=== PATIENT | female | born 1995 | race Two or more races ===

== ENCOUNTER 2024-08-03 09:06 | Emergency (ER) | payer BC, OTHER ==
[~2024-08-03] VITALS: Ht 157.5 cm; Wt 61.7 kg
--- NOTE | 2024-08-03 10:44 | ED.PDOC ---
UN[employer] HPI Comments 29 year old female presents to the ED with chief complaint of vaginal bleeding. Patient reports that she has been experiencing some vaginal bleeding noticed when wiping with associated suprapubic cramping for the past 2 days. Patient relays that she is currently 7-8 weeks . Patient is . Patient denies any N/V, vaginal discharge, dysuria, fever, or chills. Chief Complaint: Vaginal Bleed Time Seen by MD: 10:41 Reviewed Notes: Nurses Notes, Medications, Allergies Allergies: Coded Allergies: Amoxicillin (Verified Allergy, Unknown, 08/03/24) Information Source: Patient Mode of Arrival: Ambulatory Timing: Days Prehospital treatment: None Severity: Moderate Vaginal Discharge: None Vaginal Lesions: None Bleeding Quality: Bright Red Vaginal Mass: None Onset Of Mass/Bleeding: Spontaneous Sexual Activity: Last Consensual [place]: Unknown Control: None History of: Current Blood Type: Unknown Associated Signs and Symptoms: Vaginal Bleeding, Abdominal Pain, Cramping Past Medical History PAST MEDICAL HISTORY: Denies Surgical History: Denies all surgeries SANDSTONE INSPECTOR REPAIRER History: No Pertinent SANDSTONE INSPECTOR REPAIRER History 1 Para 0 Family History Family History: Reviewed,noncontributory to illness Social History Smoker: Non-Smoker Alcohol: Denies ETOH Use Drugs: Denies Drug Use Lives In: Home Constitutional: denies: chills, diaphoresis, fatigue, fever, malaise, sweats, weakness, others EENTM: denies: blurred vision, double vision, ear bleeding, ear discharge, ear drainage, ear pain, ear ringing, eye pain, eye redness, hearing loss, mouth pain, mouth swelling, nasal discharge, nose bleeding, nose congestion, nose pain, photophobia, tearing, throat pain, throat swelling, voice changes, others Respiratory: denies: cough, hemoptysis, orthopnea, SOB at rest, shortness of breath, SOB with excertion, stridor, wheezing, others Cardiovascular: denies: chest pain, dizzy spells, diaphoresis, Dyspnea on exertion, edema, irregular heart beat, left arm pain, lightheadedness, palpitations, PND, syncope, others Gastrointestinal: reports: abdominal pain; denies: abdomen distended, blood streaked bowels, constipated, diarrhea, dysphagia, difficulty swallowing, hematemesis, melena, nausea, poor appetite, poor fluid intake, rectal bleeding, rectal pain, vomiting, others Genitourinary: reports: abnormal vagina bleeding, ; denies: burning, dyspareunia, dysuria, flank pain, frequency, hematuria, incontinence, pain, vagina discharge, urgency, others Neurological: denies: dizziness, fainting, headache, left sided numbness, left sided weakness, numbness, paresthesia, pre-existing deficit, right sided numbness, right sided weakness, seizure, speech problems, tingling, tremors, weakness, others Musculoskeletal: denies: back pain, gout, joint pain, joint swelling, muscle pain, muscle stiffness, neck pain, others Integumetry: denies: bruises, change in color, change in hair/nails, dryness, laceration, lesions, lumps, rash, wounds, others Allergic/Immunocompromised: denies: Difficulty Healing, Frequent Infections, H cherry, Itching, others Hematologic/Lymphatic: denies: anemia, blood clots, easy bleeding, easy bruising, swollen glands, others Endocrine: denies: excessive hunger, excessive sweating, excessive thirst, excessive urination, flushing, intolerance to cold, intolerance to heat, unexplained weight gain, unexplained weight loss, others Psychiatric: denies: anxiety, bipolar disorder, depression, hopeless, panic disorder, schizophrenia, sleepless, suicidal, others All Other Systems: Reviewed and Negative Physical Exam General Appearance: No Apparent Distress HEENT: Normal ENT Inspection, Pharynx Normal, TMs Normal Neck: Full Range of Motion, Non-Tender, Normal, Normal Inspection Respiratory: Chest Non-Tender, Lungs Clear, No Accessory Muscle Use, No Respiratory Distress, Normal Breath Sounds Cardiovascular: No Edema, No JVD, No Murmur, No Gallop, Normal Peripheral Pulses, Regular Rate/Rhythm Breast Exam: Deferred Gastrointestinal: No Organomegaly, Non Tender, No Pulsatile Mass, Normal Bowel Sounds, Soft, Other ( abdomen no tenderness) Genitalia: Deferred Pelvic: Deferred Rectal: Deferred Extremities: No calf tenderness, Normal capillary refill, Normal inspection, Normal range of motion, Non-tender, No pedal edema Neurologic: Alert, tube carrier II-XII nml as Tested, No Motor Deficits, Normal Affect, Normal Mood, No Sensory Deficits Cerebellar Function: Normal Reflexes: Normal Skin: Dry, Normal Color, Warm Peripheral Pulses: 1+ carotid (R), 1+ carotid (L) Lymphatic: No Adenopathy Was a procedure done? Was a procedure done?: No Differential Diagnosis (SANDSTONE INSPECTOR REPAIRER) Vaginal Bleeding: - Incomplete, Ectopic , UTI Mass / Lesion: N/A Vaginal Discharge: , UTI, Other (Vaginal bleeding) X-Ray, Labs, Meds, VS Vital Signs Date Time Temp Pulse Resp B/P (MAP) Pulse Ox O2 Delivery O2 Flow Rate FiO2 08/03/24 12:05 97.5 74 16 107/63 (78) 97 97.5 08/03/24 09:14 98.5 82 18 108/68 (81) 97 Lab Test 08/03/24 11:51 08/03/24 09:32 Range/Units White Blood Count 8.0 4.4-10.8 10^3/uL Red Blood Count 4.59 4.0-5.20 10^6/uL Hemoglobin 14.8 12.2-16.2 g/dL Hematocrit 42.6 36.0-46.0 % Mean Corpuscular Volume 92.8 80.0-100.0 fL Mean Corpuscular Hemoglobin 32.2 H 28.0-32.0 pg Mean Corpuscular Hemoglobin Concent 34.7 32.0-36.0 g/dL Red Cell Distribution Width 14.5 H 11.8-14.3 % Platelet Count 251 140-450 10^3/uL Mean Platelet Volume 8.5 6.9-10.8 fL Neutrophils (%) (Auto) 74.2 37.0-80.0 % Lymphocytes (%) (Auto) 19.6 10.0-50.0 % Monocytes (%) (Auto) 5.2 0.0-12.0 % Eosinophils (%) (Auto) 0.4 0.0-7.0 % Basophils (%) (Auto) 0.6 0.0-2.0 % Neutrophils # (Auto) 6.0 1.6-8.6 10 ^3/uL Lymphocytes # (Auto) 1.6 0.4-5.4 10 ^3/uL Monocytes # (Auto) 0.4 0-1.3 10 ^3/uL Eosinophils # (Auto) 0 0-0.8 10 ^3/uL Basophils # (Auto) 0.1 0-0.2 10 ^3/uL Nucleated Red Blood Cells 0.0 % Sodium Level 137 136-145 mmol/L Potassium Level 3.6 3.5-5.1 mmol/L Chloride Level 105 98-107 mmol/L Carbon Dioxide Level 24 20-31 mmol/L Anion Gap 8 5-15 Blood Urea Nitrogen 5 L 9-23 mg/dL Creatinine 0.57 0.550-1.02 mg/dL Glomerular Filtration Rate Calc 127 >90 mL/min BUN/Creatinine Ratio 8.8 L 10.0-20.0 Serum Glucose 88 74-106 mg/dL Calcium Level 9.9 8.7-10.4 mg/dL Beta HCG, Quantitative 731231.6 H 1.5-4.2 mIU/mL Urine Color Yellow Yellow Urine Clarity Turbid H Clear Urine pH 6.0 5.0-9.0 Urine Specific Dawson 1.022 1.001-1.035 Urine Protein Trace H Negative Urine Ketones Negative Negative Urine Blood 2+ H Negative /uL Urine Nitrite Negative Negative Urine Bilirubin Negative Negative Urine Urobilinogen Normal Negative mg/dL Urine Leukocyte Esterase Trace Negative /uL Urine RBC 4 0 - 4 /hpf Urine WBC 5 0 - 5 /hpf Urine Squamous Epithelial Cells Few <5 /hpf Urine Bacteria Mod H None Seen /hpf Urine Mucus Few None Seen Urine Glucose Normal Normal mg/dL OB US: FINDINGS: The uterus measures 10 x 6 x 6 cm. The cervix was not seen Right ovary measures 2 x 1 x 2 cm with normal Doppler color flow Left ovary measures 3 x 2 x 3 cm with normal Doppler color flow IUP single live fetus at 8 weeks 3 days average ultrasound age based on mean crown-rump length of 2 cm and gestational sac size of 3 cm heart rate detected at 171 beats per minute. Yolk sac was not seen . IMPRESSION: IUP single live fetus 8 weeks 3 days AUA corresponding to an WAGNER of 03-12-25. Subchorionic bleed 1 x 1 x 1 cm. X-Ray, Labs, Meds, VS Comment Seen in the emergency department eventful patient came in she is about eight weeks and with vaginal spotting CBC is normal BNP negative Urine shows 2+ blood test 152-75.6 The ultrasound shows an intrauterine at eight weeks and three days with a heart tone of 171 Patient will be discharged home to follow up with her event marketing intern Images Reviewed?: Images reviewed and evaluated by me Time of 1ST Reevaluation: 11:41 Reevaluation 1ST: Unchanged Time of 2ND Reevaluation: 14:29 Reevaluation 2ND: Improved Consultation: PCP, maintenance planner Patient Education/Counseling: Diagnosis, Treatment, Prognosis, Need For Follow Up Family Education/Counseling: Diagnosis, Treatment, Prognosis, Need For Follow Up, No Family Present Additional Information - I reviewed the following notes from patient's past medical encounters: - The following tests were ordered, and results were reviewed by me: (Labs, X- Ray, EKG) - Additional information was gathered from interviewing the following independent Historian: (Family, Other Providers, EMT) - I reviewed and agreed with the following test results read by other provider: (X-ray, CT, US) - I discussed treatments and results with medical personnel and: (consultants, family) Departure 1 Departure Time of Disposition: 14:30 Impression: Primary Impression: Qualified Codes: Z3A.08 - 8 weeks gestation of Additional Impression: First trimester bleeding Disposition: 01 HOME / SELF CARE / HOMELESS Condition: Good Additional Instructions: Follow up with your event marketing intern Discharged With: Self Critical Care Note Critical Care Time?: No Stability Stability form required: No Heart Score Heart Score: Heart Score Response (Comments) Value History N/A 0 EKG N/A 0 Age <45 0 Risk Factors No known risk factors 0 Troponin N/A 0 Total 0 I personally scribed for TATA KIMBALL MD ([email or web address]) on 08/03/24 at 10:44. Electronically submitted by Christiano Gan ([email or web address]). I personally scribed for TATA KIMBALL MD ([email or web address]) on 08/03/24 at 13:57. Electronically submitted by Christiano Gan ([email or web address]). TATA KIMBALL MD Aug 03, 2024 10:44
[2024-08-03 11:22] LABS: Urine Bacteria MOD /hpf (None Seen); Urine Blood 2+ /uL (Negative); Urine Clarity Turbid (Clear); Urine Color Yellow (Yellow); Urine Mucus FEW (None Seen); Urine Protein, UAD TRACE (Negative); Urine Specific Gravity 1.022 (1.001-1.035); Urine Urobilinogen Normal (Negative); Urine WBC 5 /hpf (0 - 5)
[2024-08-03 12:05] VITALS: TEMP 97.5
[2024-08-03 12:33] LABS: Chloride 105 mmol/L (98-107); Potassium 3.6 mmol/L (3.5-5.1); Sodium 137 mmol/L (136-145)
[2024-08-03 12:34] LABS: Anion Gap 8 (5-15); Calcium 9.9 mg/dL (8.7-10.4); Carbon Dioxide 24 mmol/L (20-31)
[2024-08-03 12:39] LABS: BUN/Creatinine Ratio 8.8 (10.0-20.0); Blood Urea Nitrogen 5 mg/dL (9-23); Glucose 88 mg/dL (74-106)
[2024-08-03 12:43] LABS: Basophils # (auto) 0.1 10 ^3/uL (0-0.2); Basophils % (auto) 0.6 % (0.0-2.0); Eosinophils # (auto) 0 10 ^3/uL (0-0.8); Eosinophils % (auto) 0.4 % (0.0-7.0); Hematocrit 42.6 % (36.0-46.0); Hemoglobin 14.8 g/dL (12.2-16.2); Lymphocytes # (auto) 1.6 10 ^3/uL (0.4-5.4); Lymphocytes % (auto) 19.6 % (10.0-50.0); Mean Corpuscular Hemoglobin 32.2 pg (28.0-32.0); Mean Corpuscular Hgb Conc. 34.7 g/dL (32.0-36.0); Mean Corpuscular Volume 92.8 fL (80.0-100.0); Monocytes # (auto) 0.4 10 ^3/uL (0-1.3); Monocytes % (auto) 5.2 % (0.0-12.0); Neutrophils % (auto) 74.2 % (37.0-80.0); Platelet Count (auto) 251 10^3/uL (140-450); Red Blood Cells 4.59 10^6/uL (4.0-5.20); Red Cell Distribution Width 14.5 % (11.8-14.3)
--- NOTE | 2024-08-03 13:44 | DVH ---
OB ULTRASOUND <14 WEEKS: HISTORY: Vaginal bleeding and cramping TECHNIQUE: Multiple real-time grayscale sonographic images of the pelvis with duplex Doppler color f low, spectral and M-mode analysis. TRANSDUCERS: TA FINDINGS: The uterus measures 10 x 6 x 6 cm. The cervix was not seen Right ovary measures 2 x 1 x 2 cm with normal Doppler color flow Left ovary measures 3 x 2 x 3 cm with normal Doppler color flow IUP single live fetus at 8 weeks 3 days average ultrasound age based on mean crown-rump length of 2 cm and gestational sac size of 3 cm heart rate detected at 171 beats per minute. Yolk sac was not seen . IMPRESSION: IUP single live fetus 8 weeks 3 days AUA corresponding to an WAGNER of 8-1-25. Subchorionic bleed 1 x 1 x 1 cm.
[2024-08-03 14:40] VITALS: BP 108/70; PULSE 77; RESP 17; O2SAT 99
== END 2024-08-03 14:41 | disposition home or self-care (01) ==
LOC: ER 09:06
DX: O26.891 Other specified pregnancy related conditions, first trimester (principal); Z3A.08 8 weeks gestation of pregnancy; Z88.1 Allergy status to other antibiotic agents
CPT/HCPCS: 36415; 76801; 80048; 81001; 84702; 85025